=== PATIENT | female | born 1970 | race Caucasian/White ===

== ENCOUNTER 2018-05-11 11:20 | Observation (INO) | payer BC ==
[2018-05-11 11:30] VITALS: BMI 33.6
--- NOTE | 2018-05-11 11:52 | PDOC ---
History of Present Illness - General Chief Complaint: Overdose Stated Complaint: OVERDOSE Time Seen by Provider: 05/11/18 11:35 History Source: Patient - History of Present Illness Timing/Duration: other (this am) Associated Symptoms: denies: chest pain, diaphoresis, fever/chills, headaches, malaise, nausea/vomiting, seizure, shortness of breath, syncope, weakness Past History - Past Medical History Allergies/Adverse Reactions: Allergies Allergy/AdvReac Type Severity Reaction Status Date / Time No Known Allergies Allergy Verified 05/11/18 11:24 Home Medications: Ambulatory Orders Cetirizine HCl [Zyrtec -] 10 mg PO DAILY 05/11/18 Fluticasone/Vilanterol [Breo Ellipta 100-25 Mcg INH] 1 each IH DAILY 05/11/18 Metformin HCl [Metformin HCl ER] 500 mg PO DAILY 05/11/18 Metoprolol Tartrate 25 mg PO DAILY 05/11/18 Montelukast Sodium [Singulair] 10 mg PO DAILY 05/11/18 Omeprazole 40 mg PO DAILY 05/11/18 CVA: No COPD: No DVT: No Dementia: No - Immunization History Immunization Up to Date: Yes - Suicide/Smoking/Psychosocial Hx Smoking History: Never smoked Have you smoked in the past 12 months: No Information on smoking cessation initiated: No Hx Alcohol Use: No Drug/Substance Use Hx: No Substance Use Type: None Review of Systems - Review of Systems Constitutional: No: Chills, Fever HEENTM: No: Blurred Vision Respiratory: No: Shortness of Breath Cardiac (ROS): No: Chest Pain, Palpitations ABD/GI: No: Nausea, Vomiting Neurological: Yes: Dizziness. No: Headache, Seizure *Physical Exam - Vital Signs Last Vital Signs Temp Pulse Resp BP Pulse Ox 98.1 F 70 16 150/73 98 05/11/18 11:25 05/11/18 11:25 05/11/18 11:25 05/11/18 11:25 05/11/18 11:25 - Physical Exam General Appearance: Yes: Appropriately Dressed. No: Apparent Distress HEENT: positive: Normal Voice Neck: positive: Supple Respiratory/Chest: positive: Lungs Clear, Normal Breath Sounds. negative: Respiratory Distress Cardiovascular: positive: Regular Rate, S1, S2 Gastrointestinal/Abdominal: positive: Soft. negative: Tender Integumentary: positive: Dry, Warm Neurologic: positive: Fully Oriented, Alert, Normal Mood/Affect Medical Decision Making - Medical Decision Making 05/11/18 11:47 67-year-old female, history of NIIDM, asthma, GERD, depression on wellbutrin ( 300mg QD), here for evaluation after accidentally taking an extra dose of her wellbutrin. Patient states she took her usual 300 mg wellbutrin at 8:30 this morning and then while reaching for her omeprazole, accidentally took another wellbutrin tablet an hr later. States she felt dizzy immediately after which has since resolved and denies any other symptoms at this time. Went to urgent care directly who then told her to come to ER. Pt denies any SI and denies ideation/attempts in past. States depression managed by her PMD See exam Accidental OD Took extra dose of wellbutrin this am Asx and well brittany and stable -will call poison control for recs 05/11/18 11:52 Case d/w poison control who states the safety threshold for wellbutrin is 450 mg. States the concern for seizure is high given that patient took 600 mg of an extended release tablet. Recommend small dose of activated charcoal and that patient at least be observed for 12 hours in the ED and if remains stable and no seizure, can be discharged home. Pt informed and agrees with plan. Will make patient ED short stay Obs 05/11/18 14:19 Gave report to hospitalist and pt admitted to ED short stay Obs *DC/Admit/Observation/Transfer Diagnosis at time of Disposition: Accidental overdose Qualifiers: Encounter type: initial encounter Qualified Code(s): T50.901A - Poisoning by unspecified drugs, medicaments and biological substances, accidental ( unintentional), initial encounter - Discharge Dispostion Condition at time of disposition: Fair Decision to Admit order: Yes - Referrals - Patient Instructions - Post Discharge Activity
[2018-05-11] MEDS ORDERED: CHARCOAL/WATER SOLUTION 25 GM/120 ML TUBE PO ONE (12:40)
[2018-05-11] MEDS ORDERED: CHARCOAL/WATER SOLUTION 25 GM/120 ML TUBE ONE (13:02)
--- NOTE | 2018-05-11 14:59 | PDOC ---
*Physical Exam - Vital Signs Last Vital Signs Temp Pulse Resp BP Pulse Ox 98.1 F 70 16 150/73 98 05/11/18 11:25 05/11/18 11:25 05/11/18 11:25 05/11/18 11:25 05/11/18 11:25 - Physical Exam General Appearance: Yes: Nourished HEENT: positive: Normal ENT Inspection Respiratory/Chest: positive: Lungs Clear, Normal Breath Sounds Cardiovascular: positive: Regular Rhythm, Regular Rate, S1, S2 Gastrointestinal/Abdominal: positive: Normal Bowel Sounds, Flat, Soft. negative : Tender Musculoskeletal: positive: Normal Inspection. 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 intact, Fully Oriented, Alert, Motor Strength 5/5 Heart Score/ECG Review #1 ECG reviewed & interpreted by me at: 15:26 General ECG Interpretation: Sinus Rhythm, Normal Rate (74), Normal Intervals, No acute ischemic changes ED Treatment Course - Medications Given in the ED: ED Medications Discontinued Medications Generic Name Dose Route Start Last Admin Trade Name Freq PRN Reason Stop Dose Admin Charcoal 25 gm 05/11/18 12:40 05/11/18 13:13 Activated Charcoal - PO 05/11/18 12:41 25 gm ONCE ONE Administration Medical Decision Making - Medical Decision Making 05/11/18 14:57 47 yo f with h/o htn dm depression s/p accidental overdose wellbutrin. took extra wellbutrin pill when was reaching for omeprazole. no f/c no si, not intentional. no seizure like activity no n/v since happened. on exam pt awake and alert. d/w poison control recommend 12 hr observation. pt seen and examined in conjunction with Christiano Molina, agree with her assessment and plan. 05/11/18 15:02 *DC/Admit/Observation/Transfer Diagnosis at time of Disposition: Accidental overdose Qualifiers: Encounter type: initial encounter Qualified Code(s): T50.901A - Poisoning by unspecified drugs, medicaments and biological substances, accidental ( unintentional), initial encounter - Discharge Dispostion Condition at time of disposition: Fair - Referrals - Patient Instructions - Post Discharge Activity
[2018-05-11] MEDS ORDERED: ONDANSETRON *ODT* 4 MG TABLET SL ONE (15:00)
[2018-05-11] MEDS ORDERED: ONDANSETRON *ODT* 4 MG TABLET ONE (15:06)
--- NOTE | 2018-05-11 17:28 | HP ---
CHIEF COMPLAINT: accidental drug overdose PCP: HISTORY OF PRESENT ILLNESS: The patient is a 47 yo f w/ PMH DM, GERD, depression who presented to the ED after accidentally taking a double dose of her home Wellbutrin 300mg. She states that she took her wellbutrin at 8 am this morning, then went to take her omeprazole at 9am and accidentally ingested another 300mg of her Wellbutrin as both of the bottles appeared similar. Patient endorses a brief feeling of dizziness right after taking the pill which resolved spontaneously. Poison control was contacted from the ED, who suggested activated charcoal and 12 hours of observation due to the risk of seizure if >450mg ingested in 24 hrs. Patient denies any complaints at this time. Patient denies suicidal or homicidal ideation. Recent Travel: none PAST MEDICAL HISTORY: see HPI PAST SURGICAL HISTORY: Social History: Smoking: denies Alcohol: denies Drugs: denies Family History: non-contributory Allergies No Known Allergies Allergy (Verified 05/11/18 11:24) HOME MEDICATIONS: Home Medications Medication Instructions Recorded Cetirizine HCl [Zyrtec -] 10 mg PO DAILY 05/11/18 Fluticasone/Vilanterol [Breo 1 each IH DAILY 05/11/18 Ellipta 100-25 Mcg INH] Metformin HCl [Metformin HCl ER] 500 mg PO DAILY 05/11/18 Metoprolol Tartrate 25 mg PO DAILY 05/11/18 Montelukast Sodium [Singulair] 10 mg PO DAILY 05/11/18 Omeprazole 40 mg PO DAILY 05/11/18 REVIEW OF SYSTEMS CONSTITUTIONAL: Absent: fever, chills, diaphoresis, generalized weakness, malaise, loss of appetite, weight change HEENT: Absent: rhinorrhea, nasal congestion, throat pain, throat swelling, difficulty swallowing, mouth swelling, ear pain, eye pain, visual changes CARDIOVASCULAR: Absent: chest pain, syncope, palpitations, irregular heart rate, lightheadedness , peripheral edema RESPIRATORY: Absent: cough, shortness of breath, dyspnea with exertion, orthopnea, wheezing, stridor, hemoptysis GASTROINTESTINAL: Absent: abdominal pain, abdominal distension, nausea, vomiting, diarrhea, constipation, melena, hematochezia GENITOURINARY: Absent: dysuria, frequency, urgency, hesitancy, hematuria, flank pain, genital pain MUSCULOSKELETAL: Absent: myalgia, arthralgia, joint swelling, back pain, neck pain SKIN: Absent: rash, itching, pallor HEMATOLOGIC/IMMUNOLOGIC: Absent: easy bleeding, easy bruising, lymphadenopathy, frequent infections ENDOCRINE: Absent: unexplained weight gain, unexplained weight loss, heat intolerance, cold intolerance NEUROLOGIC: Absent: headache, focal weakness or paresthesias, dizziness, unsteady gait, seizure, mental status changes, bladder or bowel incontinence PSYCHIATRIC: Absent: anxiety, depression, suicidal or homicidal ideation, hallucinations. PHYSICAL EXAMINATION Vital Signs - 24 hr 05/11/18 11:25 Temperature 98.1 F Pulse Rate 70 Respiratory 16 Rate Blood Pressure 150/73 O2 Sat by Pulse 98 Oximetry (%) GENERAL: Awake, alert, and fully oriented, in no acute distress. HEAD: Normal with no signs of trauma. EYES: Pupils equal, round and reactive to light, extraocular movements intact, sclera anicteric, conjunctiva clear. No lid lag. EARS, NOSE, THROAT: oropharynx clear without exudates. Moist mucous membranes. NECK: Normal range of motion, supple without lymphadenopathy, JVD, or masses. LUNGS: Breath sounds equal, clear to auscultation bilaterally. No wheezes, and no crackles. No accessory muscle use. HEART: Regular rate and rhythm, normal S1 and S2 without murmur, rub or gallop. ABDOMEN: Soft, nontender, not distended, normoactive bowel sounds, no guarding, no rebound, no masses. No hepatomegaly or splenomegaly. LOWER EXTREMITIES: 2+ pulses, warm, well-perfused. No calf tenderness. No peripheral edema. NEUROLOGICAL: Cranial nerves II-X intact. Normal speech. PSYCHIATRIC: Cooperative. Good eye contact. Appropriate mood and affect. SKIN: Warm, dry, normal turgor, no rashes or lesions noted, normal capillary refill. ASSESSMENT/PLAN: The patient is a 47 yo f PMH GERD, DM, Depression who comes into the ED after accidentally ingesting an extra dose of her Wellbutrin -will observe the patient under short stay ED obs due to risk of seizure -if patient remains seizure free for 12 hours after ingestion, the patient can likely be DC home. Visit type - Emergency Visit Emergency Visit: Yes ED Registration Date: 05/11/18 Care time: The patient presented to the Emergency Department on the above date and was hospitalized for further evaluation of their emergent condition. - New Patient This patient is new to me today: Yes Date on this admission: 05/11/18 - Critical Care Critical Care patient: No Hospitalist Screening - Colonoscopy Questionnaire Colonoscopy Questionnaire: Colonoscopy Questionnaire - Patient: 50 - 75 years old and never had a screening colonoscopy: Unknown History of colon or rectal polyps, or CA: Unknown History of IBD, Crohn's disease or UC: Unknown History of abdominal radiation therapy as a child: Unknown - Relative: 1 with colon or rectal CA, or polyps at age 60 or younger: Unknown Colon or rectal CA diagnosed at age 45 or younger: Unknown Multiple relatives with colon or rectal CA: Unknown - Outcome: Screening Result: Negative Screen
[2018-05-11 18:39] VITALS: BP 127/88; PULSE 75; TEMP 98.4
--- NOTE | 2018-05-11 18:45 | PDOC ---
*Physical Exam - Vital Signs Last Vital Signs Temp Pulse Resp BP Pulse Ox 98.4 F 75 18 127/88 100 05/11/18 18:37 05/11/18 18:37 05/11/18 18:37 05/11/18 18:37 05/11/18 18:37 ED Treatment Course - Medications Given in the ED: ED Medications Discontinued Medications Generic Name Dose Route Start Last Admin Trade Name Sierra PRN Reason Stop Dose Admin Charcoal 25 gm 05/11/18 12:40 05/11/18 13:13 Activated Charcoal - PO 05/11/18 12:41 25 gm ONCE ONE Administration Ondansetron HCl 4 mg 05/11/18 15:00 05/11/18 15:09 Zofran Odt - SL 05/11/18 15:01 4 mg ONCE ONE Administration Medical Decision Making - Medical Decision Making 05/11/18 18:44 Pt stating she wishes to leave without waiting the full twelve hours. We discussed risks of Wellbutrin overdose. Her vital signs are normal, have been normal during her ED stay. She states she will have someone with her at home when she goes. *DC/Admit/Observation/Transfer Diagnosis at time of Disposition: Accidental overdose Qualifiers: Encounter type: initial encounter Qualified Code(s): T50.901A - Poisoning by unspecified drugs, medicaments and biological substances, accidental ( unintentional), initial encounter - Discharge Dispostion Disposition: AGAINST MEDICAL ADVICE Condition at time of disposition: Stable Decision to Admit order: No - Referrals - Patient Instructions - Post Discharge Activity
--- NOTE | 2018-05-12 03:18 | DS ---
Physical Exam: SUBJECTIVE: Patient seen and examined . No acute complaints. No distress OBJECTIVE: Vital Signs Period Temp Pulse Resp BP Sys/Lewis Pulse Ox Last 24 Hr 98.1 F-98.4 F 70-75 16-18 127-150/73-88 98-100 PHYSICAL EXAM GENERAL: A&Ox3, no acute distress EYES: PERRLA, EOMI ENT: Moist mucus membranes NECK: No JVD LUNGS: CTA, no wheezes HEART: RRR, no murmurs ABDOMEN: Soft, nontender, BS present MUSCULOSKELETAL: No CVA Tenderness EXTREMITIES: 2+ pulses, no edema. NEUROLOGICAL: Cranial nerves II-XII intact. HOSPITAL COURSE: Date of Admission:05/11/18 47 year old female with a hx of depression, DM, GERD who presented to the ED after accidentally taking a double dose of her home Wellbutrin 300mg. She states that she took her wellbutrin at 8 am this morning, then went to take her omeprazole at 9am and accidentally ingested another 300mg of her Wellbutrin as both of the bottles appeared similar. Denied any acute complaints. was told to come to ED for monitoring for Seizure. Patient stayed around 8 hours out of the recommended 12 and signed out AMA before she was able to be discharged. During her stay, she did not have any seizure-like activity. Date of Discharge: 05/12/18 Minutes to complete discharge: 36 Discharge Summary Reason For Visit: ACCIDENTAL OVERDOSE Condition: Stable - Instructions Disposition: AGAINST MEDICAL ADVICE - Home Medications Comprehensive Discharge Medication List: Ambulatory Orders Cetirizine HCl [Zyrtec -] 10 mg PO DAILY 05/11/18 Fluticasone/Vilanterol [Breo Ellipta 100-25 Mcg INH] 1 each IH DAILY 05/11/18 Metformin HCl [Metformin HCl ER] 500 mg PO DAILY 05/11/18 Metoprolol Tartrate 25 mg PO DAILY 05/11/18 Montelukast Sodium [Singulair] 10 mg PO DAILY 05/11/18 Omeprazole 40 mg PO DAILY 05/11/18 This patient is new to me today: Yes Date on this admission: 05/12/18 Emergency Visit: Yes ED Registration Date: 05/11/18 Care time: The patient presented to the Emergency Department on the above date and was hospitalized for further evaluation of their emergent condition. Critical Care patient: No - Discharge Referral Referred to [facility] No
--- NOTE | 2018-05-13 10:13 | EKG ---
Test Reason : Blood Pressure : / mmHG Vent. Rate : 074 BPM Atrial Rate : 074 BPM P-R Int : 176 ms QRS Dur : 094 ms QT Int : 408 ms P-R-T Axes : 002 008 043 degrees QTc Int : 452 ms SINUS RHYTHM WITH FUSION COMPLEXES OTHERWISE NORMAL ECG NO PREVIOUS ECGS AVAILABLE Confirmed by CESAR NOVA MD ([id number]) on 05/13/2018 10:12:44 AM Referred By: Confirmed By:CESAR NOVA MD
== END 2018-05-11 19:15 | disposition left against medical advice (07) ==
LOC: JER 11:20 → JERBED 14:19
PROVIDERS: ADMIT Internal Medicine; ATTEND Internal Medicine
DX: T43.291A Poisoning by other antidepressants, accidental (unintentional), initial encounter (principal); Y92.89 Other specified places as the place of occurrence of the external cause; E11.9 Type 2 diabetes mellitus without complications; J45.909 Unspecified asthma, uncomplicated; K21.9 Gastro-esophageal reflux disease without esophagitis; F32.9 Major depressive disorder, single episode, unspecified; Z79.84 Long term (current) use of oral hypoglycemic drugs
CPT/HCPCS: 93005; 93010; 99284-25; G0378; Q0162